=== PATIENT | female | born 1945 | race Caucasian/White ===

== ENCOUNTER 2020-01-02 08:15 | Inpatient (IN) | payer MEDICARE, BC ==
[2020-01-02] VITALS (539 sets, daily range): BP systolic 85–133; BP diastolic 40–71; PULSE 55–66; TEMP 97.3–98.7; O2SAT 54–100
[~2020-01-02] VITALS: Ht 154.9 cm; Wt 62.7 kg
[~2020-01-02 08:15] MED LIST: AMBIEN 5MG TABLE5 MG PO; AMITRIPTYLINE H50 M1 PO; AMITRIPTYLINE50 MG PO; ASPIRIN 32325 MG/TAB PO; ASPIRIN 81M81 MG/TA2 PO; ATARAX 25MG25 MG/TAB PO; B COMPLEX #11 TAB PO; BENADRYL PO; BENADRYL25 M2; BENADRYL25 M2 PO; BETIMOL 0.5% OPH5 ML OU; BIO-TN500 MCG PO; BYSTOLIC PO; CALCIUM CARBON500 M1 PO; CEFTIN 250250 MG/TAB PO; CELEXA 20MG20 MG/TAB PO; CEPHALEXIN500 M1 PO; CITALOPRAM20 MG PO; CLARITIN 1010 MG/TAB PO; CLEOCIN HCL300 MG PO; DILAUDID 2MG TAB2 MG PO; DYRENIUM 50MG C50 MG; DYRENIUM 50MG C50 MG PO; FLEXERIL 1010 MG/TAB PO; FOLIC ACID 11 MG/TA1 PO; HYOMAX-SR0.375 MG PO; IMDUR 30MG30 MG/TAB PO; IMODIUM 2MG CAPS2 MG PO; KLOR-CON 88 MEQ PO; LEXAPRO20 MG PO; LORATADINE10 MG PO; MAALOX PLUS 3030 ML PO; MACROBID 1100 MG/CAP PO; MAXZIDE-25MG TA1 TAB PO; MILK OF MAGNESI30 ML PO; MOBIC 7.5MG7.5 MG PO; MOTRIN 400400 MG/TAB PO; MVI PO; NASONEX SPRAY; NIRAVAM0.25 MG PO; NITROQUICK0.4 MG SL; NITROSTAT0.4 MG/TAB SL; NORGESIC FORTE1 TA1 PO; OYSCO 500500 M1 PO; PHARMASSURE MA500 MG PO; PLAVIX 75MG TAB75 MG PO; PRILOSEC 20MG20 MG PO; PROBIOTIC FORMU1 CAP PO; RANEXA 500MG T500 MG PO; RANEXA1000 MG PO; REQUIP0.25 MG PO; REQUIP2 MG PO; RESTORIL30 MG PO; ROPINIROLE HY0.25 MG PO; SINGULAIR 110 MG/TAB PO; SINGULAIR10 MG PO; TEMAZEPAM PO; TRIAMCINOLONE0.1% TOP; TYLENOL 325MG325 MG PO; TYLENOL EXTRA500 M1 PO; VAGIFEM10 MCG VG; VERAMYST27.5 MCG/A NS; VERAPAMIL PO; VERAPAMIL180 MG/TAB PO; VITAMIN D2000 I1 PO; XALATAN EYE DROPS OD; XALATAN EYE DROPS OU; XANAX .25M0.25 MG/TA PO; XANAX 0.5MG0.5 MG PO; XANAX 1MG1 MG PO; ZESTRIL 10MG10 MG PO; ZESTRIL 20MG TA20 MG PO; ZOLOFT 50MG50 MG PO; ZYRTEC 10MG10 MG PO; [UNRECOGNIZED DRUG - OTHER]; [UNRECOGNIZED DRUG - OTHER] PO
[2020-01-02] MEDS ORDERED: NITROSTAT0.6 MG SL (08:37)
[2020-01-02] MEDS ORDERED: ISORDIL 20MG20 M1 PO (08:37)
[2020-01-02 08:53] LABS: INR 1.1 (0.8-3.0); PROTHROMBIN TIME 12.1 SECONDS (9.7-12.8)
[2020-01-02 08:54] LABS: BASO % 0.3 % (0.0-2.0); EOS # 0.1 (0.0-0.7); EOS % 0.6 % (0-4.0); GRAN % 80.4 % (42.2-75.2); HEMOGLOBIN 12.2 g/dl (12.5-16.0); LYMPH # 1.3 (1.2-3.4); LYMPH % 11.6 % (20.0-51.0); MEAN CELL VOLUME 91 fl (80.0-100.0); MEAN CORPUSCULAR HEMOGLOBIN 30 pg (27.0-31.0); MEAN CORPUSCULAR HGB CONC 33 g/dl (33.0-37.0); MEAN PLATELET VOLUME 9.4 fl (7.4-10.4); MONO # 0.7 (0.1-0.6); MONO % 6.5 % (1.7-9.3); PLATELET COUNT 338 K/mm3 (130-400); RED BLOOD COUNT 4.04 M/mm3 (4.10-5.30); REDCELL DISTRIBUTION WIDTH-CV 14.4 % (11.5-14.5)
[2020-01-02 09:00] LABS: ALANINE AMINOTRANSFERASE 21 U/L (4-34); ALBUMIN 3.9 gm/dL (3.5-5.0); ALKALINE PHOSPHATASE 94 U/L (50-136); ANION GAP 11 mmol/L (7-16); AST,SGOT 27 U/L (15-37); BILIRUBIN,TOTAL 0.7 mg/dL (0.0-1.0); BLOOD UREA NITROGEN 19 mg/dL (7-17); CALCIUM 9.3 mg/dL (8.4-10.2); CARBON DIOXIDE 20 mmol/L (22-30); CHLORIDE 104 mmol/L (98-107); GLUCOSE 116 mg/dL (74-106); LIPASE 83 U/L (23-300); POTASSIUM 4.7 mmol/L (3.4-5.0); SODIUM 134 mmol/L (137-145); TOTAL PROTEIN 7.8 gm/dL (6.4-8.2)
[2020-01-02 09:13] LABS: TROPONIN-I < 0.012 ng/mL (0.000-0.035)
[2020-01-02 09:20] LABS: HEMATOCRIT 36.7 % (37.0-47.0)
--- NOTE | 2020-01-02 10:02 | NUR ---
Patient arrives to ICU 8 via ED stretcher and is transferred to bed and monitors. Denies chest pain at this time. Dopamine gtt running at 10mcg/kg/min to peripheral LAC. VS and assessment as charted. Care assumed at this time.
--- NOTE | 2020-01-02 10:07 | NUR ---
ECHO completed at this time.
--- NOTE | 2020-01-02 10:36 | NUR ---
[facility] compounding pharmacy technician calls Dr. Coker per MD request following completion of ECHO.
--- NOTE | 2020-01-02 10:40 | NUR ---
PICC placed by [facility].
--- NOTE | 2020-01-02 12:35 | NUR ---
Dopamin gtt titrated down to 5mcg/kg/min per MAGY Coker.
--- NOTE | 2020-01-02 13:13 | NUR ---
Collision Estimator met with patient to discuss discharge planning. Patient lives in [place] with her , Elvin (ph#[phone]). Patient does not have primary care at this time but was interested in a list of [facility] providers. SW provided. Patient states she used to see Dr. Spring but they had a misunderstanding. Patient obtains medications from [facility] in [place]. Patient does not use any DME and reports independence with ADLS. Patient does not have Advance Directives and is not interested in setting them up at this time. Patient plans on returning home upon discharge. SW to continue to follow as needed.
--- NOTE | 2020-01-02 14:17 | NUR ---
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
--- NOTE | 2020-01-02 14:33 | NUR ---
SEE MERGE DOCUMENTATION FOR MEDICATION ADMINISTRATION TIMES AND INTRA/POST PROCEDURE SEDATION ASSESSMENTS.
--- NOTE | 2020-01-02 15:52 | NUR ---
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 Prior report recieved from GENTRY Bland. Patient with right groin site CDI and soft. [employer] report of titration off of dopamine gtt while in procedure. Care resumed.
--- NOTE | 2020-01-02 23:24 | NUR ---
Patient resting comfortably in bed; denies any concerns at this time.
[2020-01-03] VITALS (421 sets, daily range): BP systolic 118–131; BP diastolic 43–72; PULSE 67–79; TEMP 97.3–98.1; O2SAT 75–100
--- NOTE | 2020-01-03 06:15 | NUR ---
Patient resting in bed using cell phone; no complaints at this time.
--- NOTE | 2020-01-03 07:05 | NUR ---
Report given to GENTRY Del Castillo. Patient care transfered.
--- NOTE | 2020-01-03 08:27 | NUR ---
HECTOR PICC line discontinued as per order. See associated documentation.
--- NOTE | 2020-01-03 08:34 | NUR ---
Discharge education provided to patient with understanding verbalized.
--- NOTE | 2020-01-03 08:39 | NUR ---
Patient discharged by WC with to private car. Discharge instructions provided. Care completed.
== END 2020-01-03 08:47 | disposition home or self-care (01) | DRG 287 ==
LOC: COL.ER 08:15 → ICU 08:43
PROVIDERS: ADMIT Emergency Medicine
PROC: 4A023N7 Measurement of Cardiac Sampling and Pressure, Left Heart, Percutaneous Approach (ICD-10-PCS; principal; 2020-01-02)
PROC: 02HV33Z Insertion of Infusion Device into Superior Vena Cava, Percutaneous Approach (ICD-10-PCS; 2020-01-02)
PROC: B2111ZZ Fluoroscopy of Multiple Coronary Arteries using Low Osmolar Contrast (ICD-10-PCS; 2020-01-02)
PROC: B2131ZZ Fluoroscopy of Multiple Coronary Artery Bypass Grafts using Low Osmolar Contrast (ICD-10-PCS; 2020-01-02)
PROC: B2181ZZ Fluoroscopy of Left Internal Mammary Bypass Graft using Low Osmolar Contrast (ICD-10-PCS; 2020-01-02)
DX: I25.710 Atherosclerosis of autologous vein coronary artery bypass graft(s) with unstable angina pectoris (principal); I44.2 Atrioventricular block, complete; I25.110 Atherosclerotic heart disease of native coronary artery with unstable angina pectoris; Z95.1 Presence of aortocoronary bypass graft; Z95.5 Presence of coronary angioplasty implant and graft; Z87.891 Personal history of nicotine dependence; Z88.5 Allergy status to narcotic agent; Z88.2 Allergy status to sulfonamides; Z88.8 Allergy status to other drugs, medicaments and biological substances; I25.82 Chronic total occlusion of coronary artery; Z66 Do not resuscitate
CPT/HCPCS: C1751; J1200; J1265; J1644; J1940; J2405; J3010; J7030; Q9967

== ENCOUNTER 2020-02-03 09:26 | Emergency (ER) | payer MEDICARE, BC ==
[2008-12-03 11:33] VITALS: BP 137/78
[~2020-02-03] VITALS: Ht 154.9 cm; Wt 62.7 kg
[~2020-02-03 09:26] MED LIST changes: +ISORDIL 20MG20 M1 PO; +NITROSTAT0.6 MG SL
[2020-02-03 09:33] VITALS: TEMP 98
[2020-02-03] MEDS ORDERED: PRINIVIL20 MG PO (09:43)
[2020-02-03] MEDS ORDERED: XALATAN EYE DROPS OU (09:44)
[2020-02-03 09:52] LABS: BASO % 0.3 % (0.0-2.0); EOS # 0.1 (0.0-0.7); EOS % 1.1 % (0-4.0); GRAN % 79.9 % (42.2-75.2); HEMATOCRIT 38.3 % (37.0-47.0); HEMOGLOBIN 13.2 g/dl (12.5-16.0); MEAN CELL VOLUME 87 fl (80.0-100.0); MEAN CORPUSCULAR HEMOGLOBIN 30 pg (27.0-31.0); MEAN CORPUSCULAR HGB CONC 35 g/dl (33.0-37.0); MEAN PLATELET VOLUME 9.4 fl (7.4-10.4); MONO # 0.7 (0.1-0.6); MONO % 7.4 % (1.7-9.3); PLATELET COUNT 227 K/mm3 (130-400); RED BLOOD COUNT 4.41 M/mm3 (4.10-5.30); REDCELL DISTRIBUTION WIDTH-CV 14.1 % (11.5-14.5)
[2020-02-03 09:54] LABS: INR 1.1 (0.8-3.0)
[2020-02-03 09:57] LABS: PARTIAL THROMBOPLASTIN TIME 24.9 SECONDS (26.0-37.0)
[2020-02-03 10:04] LABS: ALANINE AMINOTRANSFERASE 17 U/L (4-34); ALBUMIN 4.3 gm/dL (3.5-5.0); ALKALINE PHOSPHATASE 113 U/L (50-136); ANION GAP 9 mmol/L (7-16); AST,SGOT 28 U/L (15-37); BILIRUBIN,TOTAL 0.8 mg/dL (0.0-1.0); BLOOD UREA NITROGEN 15 mg/dL (7-17); CALCIUM 9.3 mg/dL (8.4-10.2); CARBON DIOXIDE 22 mmol/L (22-30); CHLORIDE 105 mmol/L (98-107); CREATININE, serum 0.92 (0.52-1.25); GLUCOSE 117 mg/dL (74-106); POTASSIUM 3.5 mmol/L (3.4-5.0); SODIUM 136 mmol/L (137-145); TOTAL PROTEIN 8.7 gm/dL (6.4-8.2)
[2020-02-03 10:17] LABS: TROPONIN-I < 0.012 ng/mL (0.000-0.035)
[2020-02-03 13:59] VITALS: BP 130/81; PULSE 60
== END 2020-02-03 14:07 | disposition home or self-care (01) ==
LOC: COL.ER 09:26
PROVIDERS: Family Medicine
DX: R07.9 Chest pain, unspecified (principal); I25.10 Atherosclerotic heart disease of native coronary artery without angina pectoris; Z95.9 Presence of cardiac and vascular implant and graft, unspecified; Z95.0 Presence of cardiac pacemaker; Z79.02 Long term (current) use of antithrombotics/antiplatelets; Z79.82 Long term (current) use of aspirin
CPT/HCPCS: J1200; J1885

== ENCOUNTER 2020-02-10 09:12 | Emergency (ER) | payer MEDICARE, BC ==
[2008-12-03 11:33] VITALS: BP 137/78
[~2020-02-10] VITALS: Ht 154.9 cm; Wt 62.7 kg
[~2020-02-10 09:12] MED LIST changes: +PRINIVIL20 MG PO
[2020-02-10 09:16] VITALS: TEMP 98.5
[2020-02-10] MEDS ORDERED: PREDNISONE20 MG PO (09:30)
[2020-02-10] MEDS ORDERED: ATARAX 25MG25 MG/TAB PO (09:31)
[2020-02-10] MEDS ORDERED: CATAPRES0.2 MG PO (09:48)
[2020-02-10] MEDS ORDERED: CLARITIN 1010 MG/TAB PO (09:49)
[2020-02-10 10:17] LABS: BASO % 0.2 % (0.0-2.0); EOS # 0.2 (0.0-0.7); EOS % 1.8 % (0-4.0); GRAN # 10.1 (1.4-6.5); GRAN % 81.3 % (42.2-75.2); HEMOGLOBIN 12.4 g/dl (12.5-16.0); LYMPH # 1.3 (1.2-3.4); LYMPH % 10.3 % (20.0-51.0); MEAN CELL VOLUME 89 fl (80.0-100.0); MEAN CORPUSCULAR HEMOGLOBIN 30 pg (27.0-31.0); MEAN CORPUSCULAR HGB CONC 34 g/dl (33.0-37.0); MEAN PLATELET VOLUME 9.4 fl (7.4-10.4); MONO # 0.7 (0.1-0.6); MONO % 5.8 % (1.7-9.3); PLATELET COUNT 251 K/mm3 (130-400); REDCELL DISTRIBUTION WIDTH-CV 14.3 % (11.5-14.5)
[2020-02-10 10:23] LABS: HEMATOCRIT 36.3 % (37.0-47.0)
[2020-02-10 10:39] LABS: ALANINE AMINOTRANSFERASE 22 U/L (4-34); ALBUMIN 3.9 gm/dL (3.5-5.0); ALKALINE PHOSPHATASE 112 U/L (50-136); ANION GAP 9 mmol/L (7-16); AST,SGOT 30 U/L (15-37); BILIRUBIN,TOTAL 0.7 mg/dL (0.0-1.0); BLOOD UREA NITROGEN 25 mg/dL (7-17); CALCIUM 8.9 mg/dL (8.4-10.2); CARBON DIOXIDE 22 mmol/L (22-30); CHLORIDE 104 mmol/L (98-107); CREATININE, serum 0.96 (0.52-1.25); GLUCOSE 96 mg/dL (74-106); POTASSIUM 3.6 mmol/L (3.4-5.0); SODIUM 135 mmol/L (137-145)
[2020-02-10 11:41] LABS: TROPONIN-I < 0.012 ng/mL (0.000-0.035)
[2020-02-10 11:55] VITALS: BP 179/91; PULSE 72
== END 2020-02-10 12:10 | disposition home or self-care (01) ==
LOC: COL.ER 09:12
PROVIDERS: Emergency Medicine
DX: R21 Rash and other nonspecific skin eruption (principal); I25.10 Atherosclerotic heart disease of native coronary artery without angina pectoris; Z79.82 Long term (current) use of aspirin; Z79.02 Long term (current) use of antithrombotics/antiplatelets; Z95.1 Presence of aortocoronary bypass graft; Z95.0 Presence of cardiac pacemaker
CPT/HCPCS: J1200; J2930